=== PATIENT | female | born 1985 | race Caucasian/White ===

== ENCOUNTER 2018-11-10 16:19 | Emergency (ER) | payer OTHER, SELFPAY ==
[2018-11-10 16:47] VITALS: BP 126/87; PULSE 81; RESP 14; TEMP 36.7; O2SAT 98; BMI 21.1
[2018-11-10 17:23] LABS: Prothrombin Time 11.2 SECONDS (10.1-12.7)
[2018-11-10 17:25] LABS: PTT Partial Thromboplastin Tim 34 SECONDS (26.4-36.2)
[2018-11-10 17:26] LABS: Alanine Aminotransferase 20 IU/L (9-52); Albumin 5.1 g/dL (3.5-5.0); Albumin Globulin Ratio 1.5 (1.0-2.8); Alkaline Phosphatase 57 U/L (38-126); Aspartate Aminotransferase 27 IU/L (14-36); BUN Creatinine Ratio 18.6 (6-22); Bilirubin Total 0.7 mg/dL (0.2-1.3); Blood Urea Nitrogen 13 mg/dL (7-17); Calcium 9.7 mg/dL (8.4-10.2); Carbon Dioxide 25 mmol/L (22-32); Chloride 103 mmol/L (98-107); Estimated Glomerular Filt Rate > 60.0 mL/min (>60); Globulin 3.3 g/dL (1.7-4.1); Glucose 97 mg/dL (70-100); HEMOLYSIS 24 (0-50); Lipase 104 U/L (23-300); Sodium 140 mmol/L (137-145); Total Protein 8.4 g/dL (6.3-8.2)
--- NOTE | 2018-11-10 17:33 | ED.ABDPAIN ---
HPI - Abdominal Pain <BHAKTI Angel - Last Filed: 11/10/18 19:57> General Chief Complaint: Abdominal Pain Stated Complaint: states lower right abdominal pain since last night Time Seen by Provider: 11/10/18 16:53 Source: patient and family Mode of arrival: ambulatory Limitations: no limitations History of Present Illness HPI narrative: The patient is a 33-year-old female current smoker who presents with her for a chief complaint of right lower quadrant pain that started last night. She states she had generalized abdominal pain that focalized to her right lower quadrant. She denies any fevers nausea vomiting or diarrhea. She states that the pain in the right lower quadrant comes and goes. She states it was very bad approximately 1 hour prior to arrival, but states she does not have any pain on my exam. She denies any dysuria urgency or frequency. She denies any vaginal bleeding or vaginal discharge. She denies any concerned about sexually transmitted of infections. She denies any history of abdominal surgeries. Related Data Allergies Allergy/AdvReac Type Severity Reaction Status Date / Time No Known Drug Allergies Allergy Verified 11/10/18 16:46 Review of Systems <BHAKTI Angel - Last Filed: 11/10/18 19:57> Review of Systems GENERAL: Denies chills, fatigue, malaise, fever, sweats. HEENT: Denies sinus pain, ear pain, sore throat, difficulty swallowing, dizziness. RESPIRATORY: Denies dyspnea, cough, wheezing, hemoptysis, sputum. CARDIOVASCULAR: Denies chest pain, palpitations, orthopnea, edema, GASTROINTESTINAL: See HPI : Denies dysuria, frequency, incontinence, hematuria, urinary retention. MUSCULOSKELETAL: denies weakness, joint pain, or bony pain SKIN: Denies rash, skin lesions, or other NEUROLOGIC: Denies weakness, headache, numbness, change in speech, confusion, seizures, incoordination. PSYCHIATRIC: No concerning psychosocial issues. 12 point review of systems is negative except for those stated above PFSH <BHAKTI Angel - Last Filed: 11/10/18 19:57> Social History Smoking Status: Current every day smoker Social History Smoking Status: Current every day smoker Exam <BHAKTI Angel - Last Filed: 11/10/18 19:57> Narrative Exam Narrative: GENERAL: This is a well-nourished, well-developed patient, no acute distress HEAD: Atraumatic. Normocephalic. No temporal or scalp tenderness. EYES: Pupils equal round and reactive. Extraocular motions intact. No scleral icterus. No injection or drainage. ENT: Nose without bleeding, purulent drainage or septal hematoma. Throat without erythema, tonsillar hypertrophy or exudate. Uvula midline. Airway patent. NECK: Trachea midline. No JVD or lymphadenopathy. Supple, nontender, no meningeal signs. CARDIOVASCULAR: Regular rate and rhythm without murmurs, gallops, or rubs. RESPIRATORY: Clear to auscultation. Breath sounds equal bilaterally. No wheezes, rales, or rhonchi. GASTROINTESTINAL: Abdomen soft, non-tender, nondistended. No hepato-splenomegaly, or palpable masses. No guarding. Negative obturator sign. Active bowel sounds all 4 quadrants. No peritoneal signs. EXTREMITIES: No clubbing, cyanosis, or edema. No joint tenderness, effusion, or edema noted. BACK: Nontender without deformity or crepitance. No flank tenderness. NEURO: AOx3. SKIN: No rash or erythema. Initial Vital Signs Initial Vital Signs: Vital Signs Temperature 98.0 F 11/10/18 16:47 Pulse Rate 81 11/10/18 16:47 Respiratory Rate 14 11/10/18 16:47 Blood Pressure 126/87 11/10/18 16:47 Pulse Oximetry 98 11/10/18 16:47 <Elena Osborne DO - Last Filed: 11/18/18 20:34> Initial Vital Signs Initial Vital Signs: Vital Signs Temperature 98.0 F 11/10/18 16:47 Pulse Rate 81 11/10/18 16:47 Respiratory Rate 14 11/10/18 16:47 Blood Pressure 126/87 11/10/18 16:47 Pulse Oximetry 98 11/10/18 16:47 Course <BHAKTI Angel - Last Filed: 11/10/18 19:57> Orders Ordered: ED Orders 11/10/18 17:00 Test Urine Stat 11/10/18 17:04 Complete Blood Count AUTO DIFF Stat Comprehensive Metabolic Panel Stat Lipase Stat Partial Thromboplastin Time Stat Prothrombin Time INR Stat 11/10/18 17:52 US pelvic complete Stat Vital Signs - 8 hr 11/10/18 16:47 11/10/18 17:49 11/10/18 19:21 Temperature 98.0 F Pulse Rate 81 83 74 Respiratory Rate 14 15 16 Blood Pressure 126/87 Blood Pressure [Left Arm] 111/71 119/67 Pulse Oximetry 98 100 100 <Elena Osborne DO - Last Filed: 11/18/18 20:34> Orders Ordered: ED Orders 11/10/18 17:00 Test Urine Stat 11/10/18 17:04 Complete Blood Count AUTO DIFF Stat Comprehensive Metabolic Panel Stat Lipase Stat Partial Thromboplastin Time Stat Prothrombin Time INR Stat 11/10/18 17:52 US pelvic complete Stat Vital Signs - 8 hr 11/10/18 16:47 11/10/18 17:49 11/10/18 19:21 Temperature 98.0 F Pulse Rate 81 83 74 Respiratory Rate 14 15 16 Blood Pressure 126/87 Blood Pressure [Left Arm] 111/71 119/67 Pulse Oximetry 98 100 100 MDM - Abdominal Pain <LEEANNA Angel-BC - Last Filed: 11/10/18 19:57> Lab Data Result diagrams: 11/10/18 17:04 11/10/18 17:04 Lab Results 11/10/18 11/10/18 11/10/18 Range/Units 17:00 17:04 17:04 WBC 7.3 (4.5-11.0) X10^3/uL RBC 5.37 H (4.0-5.2) X10^6/uL Hgb 15.8 (12.0-16.0) g/dL Hct 46.6 H (36-46) % MCV 86.7 (80-100) fL MCH 29.5 (26-34) PG MCHC 34.0 (30-36) % RDW 12.7 (11.6-14.8) % Plt Count 240 (150-400) X10^3/uL Neut % (Auto) 51.6 (50-75) % Lymph % (Auto) 38.6 (25-40) % [place] % (Auto) 5.5 (3-14) % Eos % (Auto) 2.0 (2-4) % Baso % (Auto) 2.3 H (0-2) % Neut # (Auto) 3800 (2586-0287) /uL Lymph # (Auto) 2800 (4525-6190) /uL [place] # (Auto) 400 (0-900) /uL Eos # (Auto) 100 (0-450) /uL Baso # (Auto) 200 H (0-100) /uL PT 11.2 (10.1-12.7) SECONDS INR 1.0 (0.9-1.3) APTT 34 (26.4-36.2) SECONDS Sodium (137-145) mmol/L Potassium (3.4-5.1) mmol/L Chloride (98-107) mmol/L Carbon Dioxide (22-32) mmol/L BUN (7-17) mg/dL Creatinine (0.52-1.04) mg/dL Estimated GFR (>60) mL/min BUN/Creatinine Ratio (6-22) Glucose (70-100) mg/dL Calcium (8.4-10.2) mg/dL Total Bilirubin (0.2-1.3) mg/dL AST (14-36) IU/L ALT (9-52) IU/L Alkaline Phosphatase (38-126) U/L Total Protein (6.3-8.2) g/dL Albumin (3.5-5.0) g/dL Globulin (1.7-4.1) g/dL Albumin/Globulin Ratio (1.0-2.8) Lipase (23-300) U/L Urine Test Negative (Negative) 11/10/18 Range/Units 17:04 WBC (4.5-11.0) X10^3/uL RBC (4.0-5.2) X10^6/uL Hgb (12.0-16.0) g/dL Hct (36-46) % MCV (80-100) fL MCH (26-34) PG MCHC (30-36) % RDW (11.6-14.8) % Plt Count (150-400) X10^3/uL Neut % (Auto) (50-75) % Lymph % (Auto) (25-40) % [place] % (Auto) (3-14) % Eos % (Auto) (2-4) % Baso % (Auto) (0-2) % Neut # (Auto) (9734-8296) /uL Lymph # (Auto) (9475-4846) /uL [place] # (Auto) (0-900) /uL Eos # (Auto) (0-450) /uL Baso # (Auto) (0-100) /uL PT (10.1-12.7) SECONDS INR (0.9-1.3) APTT (26.4-36.2) SECONDS Sodium 140 (137-145) mmol/L Potassium 4.0 (3.4-5.1) mmol/L Chloride 103 (98-107) mmol/L Carbon Dioxide 25 (22-32) mmol/L BUN 13 (7-17) mg/dL Creatinine 0.70 (0.52-1.04) mg/dL Estimated GFR > 60.0 (>60) mL/min BUN/Creatinine Ratio 18.6 (6-22) Glucose 97 (70-100) mg/dL Calcium 9.7 (8.4-10.2) mg/dL Total Bilirubin 0.7 (0.2-1.3) mg/dL AST 27 (14-36) IU/L ALT 20 (9-52) IU/L Alkaline Phosphatase 57 (38-126) U/L Total Protein 8.4 H (6.3-8.2) g/dL Albumin 5.1 H (3.5-5.0) g/dL Globulin 3.3 (1.7-4.1) g/dL Albumin/Globulin Ratio 1.5 (1.0-2.8) Lipase 104 (23-300) U/L Urine Test (Negative) Point of care testing: Urine Dip Bedside Urine Glucose Negative Bedside Urine Bilirubin - Negative Bedside Urine Ketone - Negative Urine Specific [place] 1.010 Bedside Urine Occult Blood - Negative Bedside Urine pH 7.5 Bedside Urine Protein - Negative Bedside Urine Urobilinogen - Negative Bedside Urine Nitrite - Negative Bedside Urine Leukocytes - Negative Esterase Imaging Data Pelvic ultrasound: Radiologist's impression: [address] [address] Ultrasound Report Signed Patient: Kait RomeroGenevieve#: [id number] : 1985Acct:[id number] Age/Sex: te of Service: 11/10/18 Loc: ED Accession Number: [id number] Procedure: US pelvic complete Ordering Provider: Sheila Acevedo PROCEDURE: US PELVIC COMPLETE INDICATIONS: PAIN TECHNIQUE: Real-time scanning was performed of the pelvic organs, with image documentation. Additional endovaginal scanning was necessary due to incomplete visualization of the adnexal and endometrial structures by transabdominal scanning. COMPARISON: None. FINDINGS: Transabdominal scanning: Limited scanning through the kidneys shows no hydronephrosis. No pathologic free abdominal or pelvic fluid. Endovaginal scanning: Uterus: Uterus is normal in size at 9.4 x 5.4 x 6.8 cm. The endometrium measures 15.7 mm in combined thickness. There is a midline anterior intramural 3.8 x 2.6 x 3.1 cm fibroid. Ovaries: The right ovary measures 2.9 x 1.4 x 1.5 cm and the left ovary measures 4.4 x 3.1 x 2.9 cm. There is a complex, avascular cyst within the left ovary which measures 1.5 x 2.7 x 1.9 cm. IMPRESSION: 1. Complex, avascular left ovarian cyst suggesting hemorrhagic cyst or endometrioma. 6-12 week followup recommended to ensure resolution. 2. Otherwise unremarkable pelvic ultrasound. Dictated by: Yoanna Infante M.D. on 11/10/2018 at 19:29 Approved by: Yoanna Infante M.D. on 11/10/2018 at 19:31 MDM Narrative Medical decision making narrative: The patient is a 33-year-old female presents with chief complaint of right lower quadrant pain. She states she is pain-free on arrival. Her white blood cell count not elevated here, she is grossly normal lab work does not have an acute abdomen on exam. She has a negative test and normal urinalysis. She is hemodynamically stable, afebrile nontoxic-appearing upon evaluation. She states she has smoked marijuana prior to arrival. Pelvic ultrasound reveals a complex left ovarian cyst, I discussed at length with the patient that she needs follow up regarding this. I did give her contact information for the [facility] health human resources manager discussed at length return precautions the emergency department, including inability keep down fluids, fever combined with abdominal pain. The patient is pain free on discharge. Patient has no questions or concerns upon discharge. <Elena Osborne, DO - Last Filed: 11/18/18 20:34> Lab Data Lab Results 11/10/18 11/10/18 11/10/18 Range/Units 17:00 17:04 17:04 WBC 7.3 (4.5-11.0) X10^3/uL RBC 5.37 H (4.0-5.2) X10^6/uL Hgb 15.8 (12.0-16.0) g/dL Hct 46.6 H (36-46) % MCV 86.7 (80-100) fL MCH 29.5 (26-34) PG MCHC 34.0 (30-36) % RDW 12.7 (11.6-14.8) % Plt Count 240 (150-400) X10^3/uL Neut % (Auto) 51.6 (50-75) % Lymph % (Auto) 38.6 (25-40) % [place] % (Auto) 5.5 (3-14) % Eos % (Auto) 2.0 (2-4) % Baso % (Auto) 2.3 H (0-2) % Neut # (Auto) 3800 (6569-4014) /uL Lymph # (Auto) 2800 (7685-4215) /uL [place] # (Auto) 400 (0-900) /uL Eos # (Auto) 100 (0-450) /uL Baso # (Auto) 200 H (0-100) /uL PT 11.2 (10.1-12.7) SECONDS INR 1.0 (0.9-1.3) APTT 34 (26.4-36.2) SECONDS Sodium (137-145) mmol/L Potassium (3.4-5.1) mmol/L Chloride (98-107) mmol/L Carbon Dioxide (22-32) mmol/L BUN (7-17) mg/dL Creatinine (0.52-1.04) mg/dL Estimated GFR (>60) mL/min BUN/Creatinine Ratio (6-22) Glucose (70-100) mg/dL Calcium (8.4-10.2) mg/dL Total Bilirubin (0.2-1.3) mg/dL AST (14-36) IU/L ALT (9-52) IU/L Alkaline Phosphatase (38-126) U/L Total Protein (6.3-8.2) g/dL Albumin (3.5-5.0) g/dL Globulin (1.7-4.1) g/dL Albumin/Globulin Ratio (1.0-2.8) Lipase (23-300) U/L Urine Test Negative (Negative) 11/10/18 Range/Units 17:04 WBC (4.5-11.0) X10^3/uL RBC (4.0-5.2) X10^6/uL Hgb (12.0-16.0) g/dL Hct (36-46) % MCV (80-100) fL MCH (26-34) PG MCHC (30-36) % RDW (11.6-14.8) % Plt Count (150-400) X10^3/uL Neut % (Auto) (50-75) % Lymph % (Auto) (25-40) % [place] % (Auto) (3-14) % Eos % (Auto) (2-4) % Baso % (Auto) (0-2) % Neut # (Auto) (4442-3676) /uL Lymph # (Auto) (1989-0925) /uL [place] # (Auto) (0-900) /uL Eos # (Auto) (0-450) /uL Baso # (Auto) (0-100) /uL PT (10.1-12.7) SECONDS INR (0.9-1.3) APTT (26.4-36.2) SECONDS Sodium 140 (137-145) mmol/L Potassium 4.0 (3.4-5.1) mmol/L Chloride 103 (98-107) mmol/L Carbon Dioxide 25 (22-32) mmol/L BUN 13 (7-17) mg/dL Creatinine 0.70 (0.52-1.04) mg/dL Estimated GFR > 60.0 (>60) mL/min BUN/Creatinine Ratio 18.6 (6-22) Glucose 97 (70-100) mg/dL Calcium 9.7 (8.4-10.2) mg/dL Total Bilirubin 0.7 (0.2-1.3) mg/dL AST 27 (14-36) IU/L ALT 20 (9-52) IU/L Alkaline Phosphatase 57 (38-126) U/L Total Protein 8.4 H (6.3-8.2) g/dL Albumin 5.1 H (3.5-5.0) g/dL Globulin 3.3 (1.7-4.1) g/dL Albumin/Globulin Ratio 1.5 (1.0-2.8) Lipase 104 (23-300) U/L Urine Test (Negative) Point of care testing: Urine Dip Bedside Urine Glucose Negative Bedside Urine Bilirubin - Negative Bedside Urine Ketone - Negative Urine Specific [place] 1.010 Bedside Urine Occult Blood - Negative Bedside Urine pH 7.5 Bedside Urine Protein - Negative Bedside Urine Urobilinogen - Negative Bedside Urine Nitrite - Negative Bedside Urine Leukocytes - Negative Esterase Discharge Plan Departure Patient Disposition: Home Clinical Impression: Ovarian cyst Qualifiers: Laterality: left Qualified Code(s): N83.202 - Unspecified ovarian cyst, left side Abdominal pain Qualifiers: Abdominal location: right lower quadrant Qualified Code(s): R10.31 - Right lower quadrant pain Discharge Date/Time: 11/10/18 19:55 Interventions: ED Discharge Assessment Last Done: 11/10/18 19:55 Instructions: DI for Ovarian Cyst, DI for Abdominal Pain-Adult Activity Restrictions/Additional Instructions: Today your ultrasound found a left ovarian cyst that may be a complex cyst or something like an endometrioma. Your lab work was normal. Urinalysis was normal. That he follow up and get repeat imaging in 6-12 weeks. I have given contact information for that [facility] health human resources manager, who can help you identify follow-up PCP. Please come back to the ER for any acute concerns such as and we keep down fluids, fever with abdominal pain etc. Referrals: [facility] [Outside] Andres Myers MD [Primary Care Provider] - <Elena Osboren DO - Last Filed: 11/18/18 20:34> Cosign ED Attending Cosangelaature Attestation: I was immediately available in the department for consultation. Documentation has been reviewed. I agree with assessment and plan.
[2018-11-10 17:35] LABS: Add Manual Diff / Slide Review NO; Basophils Absolute Auto 200 /uL (0-100); Basophils Percent Auto 2.3 % (0-2); Eosinophils Absolute Auto 100 /uL (0-450); Hematocrit 46.6 % (36-46); Hemoglobin 15.8 g/dL (12.0-16.0); Lymphocytes Absolute Auto 2800 /uL (1100-4500); Lymphocytes Percent Auto 38.6 % (25-40); Mean Corpuscular Hemoglobin 29.5 PG (26-34); Mean Corpuscular Volume 86.7 fL (80-100); Monocytes Absolute Auto 400 /uL (0-900); Monocytes Percent Auto 5.5 % (3-14); Neutrophils Absolute Auto 3800 /uL (1500-7000); Neutrophils Percent Auto 51.6 % (50-75); Platelet Count 240 X10^3/uL (150-400); Red Blood Cell Count 5.37 X10^6/uL (4.0-5.2); Red Cell Distribution Width 12.7 % (11.6-14.8); White Blood Cell Count 7.3 X10^3/uL (4.5-11.0)
--- NOTE | 2018-11-10 17:36 | ED_ITS ---
HPI - Abdominal Pain <BHAKTI Angel - Last Filed: 11/10/18 19:57> General Chief Complaint: Abdominal Pain Stated Complaint: states lower right abdominal pain since last night Time Seen by Provider: 11/10/18 16:53 Source: patient and family Mode of arrival: ambulatory Limitations: no limitations History of Present Illness HPI narrative: The patient is a 33-year-old female current smoker who presents with her for a chief complaint of right lower quadrant pain that started last night. She states she had generalized abdominal pain that focalized to her right lower quadrant. She denies any fevers nausea vomiting or diarrhea. She states that the pain in the right lower quadrant comes and goes. She states it was very bad approximately 1 hour prior to arrival, but states she does not have any pain on my exam. She denies any dysuria urgency or frequency. She denies a ny vaginal bleeding or vaginal discharge. She denies any concerned about sexually transmitted of infections. She denies any history of abdominal surgeries. Related Data Allergies Allergy/AdvReac Type Severity Reaction Status Date / Time No Known Drug Allergies Allergy Verified 11/10/18 16:46 Review of Systems <BHAKTI Angel - Last Filed: 11/10/18 19:57> Review of Systems GENERAL: Denies chills, fatigue, malaise, fever, sweats. HEENT: Denies sinus pain, ear pain, sore throat, difficulty swallowing, dizziness. RESPIRATORY: Denies dyspnea, cough, wheezing, hemoptysis, sputum. CARDIOVASCULAR: Denies chest pain, palpitations, orthopnea, edema, GASTROINTESTINAL: See HPI : Denies dysuria, frequency, incontinence, hematuria, urinary retention. MUSCULOSKELETAL: denies weakness, joint pain, or bony pain SKIN: Denies rash, skin lesions, or other NEUROLOGIC: Denies weakness, headache, numbness, change in speech, confusion, seizures, incoordination. PSYCHIATRIC: No concerning psychosocial issues. 12 point review of systems is negative except for those stated above PFSH <BHAKTI Angel - Last Filed: 11/10/18 19:57> Social History Smoking Status: Current every day smoker Social History Smoking Status: Current every day smoker Exam <BHAKTI Angel - Last Filed: 11/10/18 19:57> Narrative Exam Narrative: GENERAL: This is a well-nourished, well-developed patient, no acute distress HEAD: Atraumatic. Normocephalic. No temporal or scalp tenderness. EYES: Pupils equal round and reactive. Extraocular motions intact. No scleral icterus. No injection or drainage. ENT: Nose without bleeding, purulent drainage or septal hematoma. Throat without erythema, tonsillar hypertrophy or exudate. Uvula midline. Airway patent. NECK: Trachea midline. No JVD or lymphadenopathy. Supple, nontender, no meningeal signs. CARDIOVASCULAR: Regular rate and rhythm without murmurs, gallops, or rubs. RESPIRATORY: Clear to auscultation. Breath sounds equal bilaterally. No wheezes, rales, or rhonchi. GASTROINTESTINAL: Abdomen soft, non-tender, nondistended. No hepato- splenomegaly, or palpable masses. No guarding. Negative obturator sign. Active bowel sounds all 4 quadrants. No peritoneal signs. EXTREMITIES: No clubbing, cyanosis, or edema. No joint tenderness, effusion, or edema noted. BACK: Nontender without deformity or crepitance. No flank tenderness. NEURO: AOx3. SKIN: No rash or erythema. Initial Vital Signs Initial Vital Signs: Vital Signs Temperature 98.0 F 11/10/18 16:47 Pulse Rate 81 11/10/18 16:47 Respiratory Rate 14 11/10/18 16:47 Blood Pressure 126/87 11/10/18 16:47 Pulse Oximetry 98 11/10/18 16:47 <Elena Osborne DO - Last Filed: 11/18/18 20:34> Initial Vital Signs Initial Vital Signs: Vital Signs Temperature 98.0 F 11/10/18 16:47 Pulse Rate 81 11/10/18 16:47 Respiratory Rate 14 11/10/18 16:47 Blood Pressure 126/87 11/10/18 16:47 Pulse Oximetry 98 11/10/18 16:47 Course <BHAKTI Angel - Last Filed: 11/10/18 19:57> Orders Ordered: ED Orders 11/10/18 17:00 Test Urine Stat 11/10/18 17:04 Complete Blood Count AUTO DIFF Stat Comprehensive Metabolic Panel Stat Lipase Stat Partial Thromboplastin Time Stat Prothrombin Time INR Stat 11/10/18 17:52 US pelvic complete Stat Vital Signs - 8 hr 11/10/18 16:47 11/10/18 17:49 11/10/18 19:21 Temperature 98.0 F Pulse Rate 81 83 74 Respiratory Rate 14 15 16 Blood Pressure 126/87 Blood Pressure [Left Arm] 111/71 119/67 Pulse Oximetry 98 100 100 <Elena Osborne DO - Last Filed: 11/18/18 20:34> Orders Ordered: ED Orders 11/10/18 17:00 Test Urine Stat 11/10/18 17:04 Complete Blood Count AUTO DIFF Stat Comprehensive Metabolic Panel Stat Lipase Stat Partial Thromboplastin Time Stat Prothrombin Time INR Stat 11/10/18 17:52 US pelvic complete Stat Vital Signs - 8 hr 11/10/18 16:47 11/10/18 17:49 11/10/18 19:21 Temperature 98.0 F Pulse Rate 81 83 74 Respiratory Rate 14 15 16 Blood Pressure 126/87 Blood Pressure [Left Arm] 111/71 119/67 Pulse Oximetry 98 100 100 MDM - Abdominal Pain <LEEANNA Angel-BC - Last Filed: 11/10/18 19:57> Lab Data Result diagrams: 11/10/18 17:04 11/10/18 17:04 Lab Results 11/10/18 11/10/18 11/10/18 Range/Units 17:00 17:04 17:04 WBC 7.3 (4.5-11.0) X10^3/uL RBC 5.37 H (4.0-5.2) X10^6/uL Hgb 15.8 (12.0-16.0) g/dL Hct 46.6 H (36-46) % MCV 86.7 (80-100) fL MCH 29.5 (26-34) PG MCHC 34.0 (30-36) % RDW 12.7 (11.6-14.8) % Plt Count 240 (150-400) X10^3/uL Neut % (Auto) 51.6 (50-75) % Lymph % (Auto) 38.6 (25-40) % [place] % (Auto) 5.5 (3-14) % Eos % (Auto) 2.0 (2-4) % Baso % (Auto) 2.3 H (0-2) % Neut # (Auto) 3800 (8558-3495) /uL Lymph # (Auto) 2800 (8725-7319) /uL [place] # (Auto) 400 (0-900) /uL Eos # (Auto) 100 (0-450) /uL Baso # (Auto) 200 H (0-100) /uL PT 11.2 (10.1-12.7) SECONDS INR 1.0 (0.9-1.3) APTT 34 (26.4-36.2) SECONDS Sodium (137-145) mmol/L Potassium (3.4-5.1) mmol/L Chloride (98-107) mmol/L Carbon Dioxide (22-32) mmol/L BUN (7-17) mg/dL Creatinine (0.52-1.04) mg/dL Estimated GFR (>60) mL/min BUN/Creatinine Ratio (6-22) Glucose (70-100) mg/dL Calcium (8.4-10.2) mg/dL Total Bilirubin (0.2-1.3) mg/dL AST (14-36) IU/L ALT (9-52) IU/L Alkaline Phosphatase (38-126) U/L Total Protein (6.3-8.2) g/dL Albumin (3.5-5.0) g/dL Globulin (1.7-4.1) g/dL Albumin/Globulin Ratio (1.0-2.8) Lipase (23-300) U/L Urine Test Negative (Negative) 11/10/18 Range/Units 17:04 WBC (4.5-11.0) X10^3/uL RBC (4.0-5.2) X10^6/uL Hgb (12.0-16.0) g/dL Hct (36-46) % MCV (80-100) fL MCH (26-34) PG MCHC (30-36) % RDW (11.6-14.8) % Plt Count (150-400) X10^3/uL Neut % (Auto) (50-75) % Lymph % (Auto) (25-40) % [place] % (Auto) (3-14) % Eos % (Auto) (2-4) % Baso % (Auto) (0-2) % Neut # (Auto) (0113-6015) /uL Lymph # (Auto) (1971-5011) /uL [place] # (Auto) (0-900) /uL Eos # (Auto) (0-450) /uL Baso # (Auto) (0-100) /uL PT (10.1-12.7) SECONDS INR (0.9-1.3) APTT (26.4-36.2) SECONDS Sodium 140 (137-145) mmol/L Potassium 4.0 (3.4-5.1) mmol/L Chloride 103 (98-107) mmol/L Carbon Dioxide 25 (22-32) mmol/L BUN 13 (7-17) mg/dL Creatinine 0.70 (0.52-1.04) mg/dL Estimated GFR > 60.0 (>60) mL/min BUN/Creatinine Ratio 18.6 (6-22) Glucose 97 (70-100) mg/dL Calcium 9.7 (8.4-10.2) mg/dL Total Bilirubin 0.7 (0.2-1.3) mg/dL AST 27 (14-36) IU/L ALT 20 (9-52) IU/L Alkaline Phosphatase 57 (38-126) U/L Total Protein 8.4 H (6.3-8.2) g/dL Albumin 5.1 H (3.5-5.0) g/dL Globulin 3.3 (1.7-4.1) g/dL Albumin/Globulin Ratio 1.5 (1.0-2.8) Lipase 104 (23-300) U/L Urine Test (Negative) Point of care testing: Urine Dip Bedside Urine Glucose Negative Bedside Urine Bilirubin - Negative Bedside Urine Ketone - Negative Urine Specific [place] 1.010 Bedside Urine Occult Blood - Negative Bedside Urine pH 7.5 Bedside Urine Protein - Negative Bedside Urine Urobilinogen - Negative Bedside Urine Nitrite - Negative Bedside Urine Leukocytes - Negative Esterase Imaging Data Pelvic ultrasound: Radiologist's impression: [address] [address] Ultrasound Report Signed Patient: Kait RomeroGenevieve#: [id number] : 1985Acct:[id number] Age/Sex: 33 / FDate of Service: 11/10/18 Loc: ED Accession Number: [id number] Procedure: US pelvic complete Ordering Provider: Sheila Acevedo PROCEDURE: US PELVIC COMPLETE INDICATIONS: PAIN TECHNIQUE: Real-time scanning was performed of the pelvic organs, with image documentation. Additional endovaginal scanning was necessary due to incomplete visualization of the adnexal and endometrial structures by transabdominal scanning. COMPARISON: None. FINDINGS: Transabdominal scanning: Limited scanning through the kidneys shows no hydronephrosis. No pathologic free abdominal or pelvic fluid. Endovaginal scanning: Uterus: Uterus is normal in size at 9.4 x 5.4 x 6.8 cm. The endometrium measures 15.7 mm in combined thickness. There is a midline anterior intramural 3.8 x 2.6 x 3.1 cm fibroid. Ovaries: The right ovary measures 2.9 x 1.4 x 1.5 cm and the left ovary measures 4.4 x 3.1 x 2.9 cm. There is a complex, avascular cyst within the left ovary which me asures 1.5 x 2.7 x 1.9 cm. IMPRESSION: 1. Complex, avascular left ovarian cyst suggesting hemorrhagic cyst or endometrioma. 6-12 week followup recommended to ensure resolution. 2. Otherwise unremarkable pelvic ultrasound. Dictated by: Yoanna Infante M.D. on 11/10/2018 at 19:29 Approved by: Yoanna Infante M.D. on 11/10/2018 at 19:31 MDM Narrative Medical decision making narrative: The patient is a 33-year-old female presents with chief complaint of right lower quadrant pain. She states she is pain-free on arrival. Her white blood cell count not elevated here, she is grossly normal lab work does not have an acute abdomen on exam. She has a negative test and normal urinalysis. She is hemodynamically stable, afebrile nontoxic- appearing upon evaluation. She states she has smoked marijuana prior to arrival. Pelvic ultrasound reveals a complex left ovarian cyst, I discussed at length with the patient that she needs follow up regarding this. I did give her contact information for the [facility] health human resources operations coordinator discussed at length return precautions the emergency department, including inability keep down fluids, fever combined with abdominal pain. The patient is pain free on discharge. Patient has no questions or concerns upon discharge. <Elena Osborne, DO - Last Filed: 11/18/18 20:34> Lab Data Lab Results 11/10/18 11/10/18 11/10/18 Range/Units 17:00 17:04 17:04 WBC 7.3 (4.5-11.0) X10^3/uL RBC 5.37 H (4.0-5.2) X10^6/uL Hgb 15.8 (12.0-16.0) g/dL Hct 46.6 H (36-46) % MCV 86.7 (80-100) fL MCH 29.5 (26-34) PG MCHC 34.0 (30-36) % RDW 12.7 (11.6-14.8) % Plt Count 240 (150-400) X10^3/uL Neut % (Auto) 51.6 (50-75) % Lymph % (Auto) 38.6 (25-40) % [place] % (Auto) 5.5 (3-14) % Eos % (Auto) 2.0 (2-4) % Baso % (Auto) 2.3 H (0-2) % Neut # (Auto) 3800 (0756-6376) /uL Lymph # (Auto) 2800 (1783-9067) /uL [place] # (Auto) 400 (0-900) /uL Eos # (Auto) 100 (0-450) /uL Baso # (Auto) 200 H (0-100) /uL PT 11.2 (10.1-12.7) SECONDS INR 1.0 (0.9-1.3) APTT 34 (26.4-36.2) SECONDS Sodium (137-145) mmol/L Potassium (3.4-5.1) mmol/L Chloride (98-107) mmol/L Carbon Dioxide (22-32) mmol/L BUN (7-17) mg/dL Creatinine (0.52-1.04) mg/dL Estimated GFR (>60) mL/min BUN/Creatinine Ratio (6-22) Glucose (70-100) mg/dL Calcium (8.4-10.2) mg/dL Total Bilirubin (0.2-1.3) mg/dL AST (14-36) IU/L ALT (9-52) IU/L Alkaline Phosphatase (38-126) U/L Total Protein (6.3-8.2) g/dL Albumin (3.5-5.0) g/dL Globulin (1.7-4.1) g/dL Albumin/Globulin Ratio (1.0-2.8) Lipase (23-300) U/L Urine Test Negative (Negative) 11/10/18 Range/Units 17:04 WBC (4.5-11.0) X10^3/uL RBC (4.0-5.2) X10^6/uL Hgb (12.0-16.0) g/dL Hct (36-46) % MCV (80-100) fL MCH (26-34) PG MCHC (30-36) % RDW (11.6-14.8) % Plt Count (150-400) X10^3/uL Neut % (Auto) (50-75) % Lymph % (Auto) (25-40) % [place] % (Auto) (3-14) % Eos % (Auto) (2-4) % Baso % (Auto) (0-2) % Neut # (Auto) (0161-3922) /uL Lymph # (Auto) (9795-1171) /uL [place] # (Auto) (0-900) /uL Eos # (Auto) (0-450) /uL Baso # (Auto) (0-100) /uL PT (10.1-12.7) SECONDS INR (0.9-1.3) APTT (26.4-36.2) SECONDS Sodium 140 (137-145) mmol/L Potassium 4.0 (3.4-5.1) mmol/L Chloride 103 (98-107) mmol/L Carbon Dioxide 25 (22-32) mmol/L BUN 13 (7-17) mg/dL Creatinine 0.70 (0.52-1.04) mg/dL Estimated GFR > 60.0 (>60) mL/min BUN/Creatinine Ratio 18.6 (6-22) Glucose 97 (70-100) mg/dL Calcium 9.7 (8.4-10.2) mg/dL Total Bilirubin 0.7 (0.2-1.3) mg/dL AST 27 (14-36) IU/L ALT 20 (9-52) IU/L Alkaline Phosphatase 57 (38-126) U/L Total Protein 8.4 H (6.3-8.2) g/dL Albumin 5.1 H (3.5-5.0) g/dL Globulin 3.3 (1.7-4.1) g/dL Albumin/Globulin Ratio 1.5 (1.0-2.8) Lipase 104 (23-300) U/L Urine Test (Negative) Point of care testing: Urine Dip Bedside Urine Glucose Negative Bedside Urine Bilirubin - Negative Bedside Urine Ketone - Negative Urine Specific [place] 1.010 Bedside Urine Occult Blood - Negative Bedside Urine pH 7.5 Bedside Urine Protein - Negative Bedside Urine Urobilinogen - Negative Bedside Urine Nitrite - Negative Bedside Urine Leukocytes - Negative Esterase Discharge Plan Departure Patient Disposition: Home Clinical Impression: Ovarian cyst Qualifiers: Laterality: left Qualified Code(s): N83.202 - Unspecified ovarian cyst, left side Abdominal pain Qualifiers: Abdominal location: right lower quadrant Qualified Code(s): R10.31 - Right lower quadrant pain Discharge Date/Time: 11/10/18 19:55 Interventions: ED Discharge Assessment Last Done: 11/10/18 19:55 Instructions: DI for Ovarian Cyst, DI for Abdominal Pain-Adult Activity Restrictions/Additional Instructions: Today your ultrasound found a left ovarian cyst that may be a complex cyst or something like an endometrioma. Your lab work was normal. Urinalysis was normal. That he follow up and get repeat imaging in 6-12 weeks. I have given contact information for that [facility] health human resources operations coordinator, who can help you identify follow-up PCP. Please come back to the ER for any acute concerns such as and we keep down fluids, fever with abdominal pain etc. Referrals: [facility] [Outside] Andres Myers MD [Primary Care Provider] - <Elena Osborne DO - Last Filed: 11/18/18 20:34> Cosign ED Attending Marshaature Attestation: I was immediately available in the department for consultation. Documentation has been reviewed. I agree with assessment and plan.
[2018-11-10 17:38] LABS: Pregnancy Test Urine Negative (Negative)
[2018-11-10 17:49] VITALS: BP 111/71; PULSE 83; RESP 15; O2SAT 100
--- NOTE | 2018-11-10 17:52 | DI.US.S_ITS ---
PROCEDURE: US PELVIC COMPLETE INDICATIONS: PAIN TECHNIQUE: Real-time scanning was performed of the pelvic organs, with image documentation. Additional endovaginal scanning was necessary due to incomplete visualization of the adnexal and endometrial structures by transabdominal scanning. COMPARISON: None. FINDINGS: Transabdominal scanning: Limited scanning through the kidneys shows no hydronephrosis. No pathologic free abdominal or pelvic fluid. Endovaginal scanning: Uterus: Uterus is normal in size at 9.4 x 5.4 x 6.8 cm. The endometrium measures 15.7 mm in combined thickness. There is a midline anterior intramural 3.8 x 2.6 x 3.1 cm fibroid. Ovaries: The right ovary measures 2.9 x 1.4 x 1.5 cm and the left ovary measures 4.4 x 3.1 x 2.9 cm. There is a complex, avascular cyst within the left ovary which measures 1.5 x 2.7 x 1.9 cm. IMPRESSION: 1. Complex, avascular left ovarian cyst suggesting hemorrhagic cyst or endometrioma. 6-12 week followup recommended to ensure resolution. 2. Otherwise unremarkable pelvic ultrasound. Dictated by: Yoanna Infante M.D. on 11/10/2018 at 19:29 Approved by: Yoanna Infante M.D. on 11/10/2018 at 19:31
[2018-11-10 19:21] VITALS: BP 119/67; PULSE 74; RESP 16; O2SAT 100
== END 2018-11-10 19:55 | disposition home or self-care (01) ==
PROVIDERS: Emergency Medicine; Emergency Provider Nurse Practitioner Family; PCP Family Medicine
DX: N83.202 Unspecified ovarian cyst, left side (principal); R10.31 Right lower quadrant pain
CPT/HCPCS: 36591; 76830; 76856; 80053; 81003; 81025; 83690; 85025; 85610; 85730; 99283; 99284

== ENCOUNTER → 2019-01-04 13:55 | Outpatient (CLI) | payer OTHER, SELFPAY ==
--- NOTE | 2019-01-04 | DI.US.S_ITS ---
PROCEDURE: US THYROID INDICATIONS: THYROMEGALY, ROUTINE SCREENING TECHNIQUE: Real-time scanning was performed of the thyroid gland, with image documentation. COMPARISON: None. FINDINGS: Right: Thyroid lobe measures 5.3 x 1.2 x 1.6 cm, and is homogeneous in echotexture. Left: Thyroid lobe measures 5.6 x 1.2 x 1.7 cm, and is homogenous in echotexture. Isthmus: 3.0 mm thick. Nodule number: 1 Location: Right mid Size: 0.7 x 0.3 x 0.5 cm Composition: Predominant solid Echogenicity: Hypoechoic Shape: wider than tall. Margins: Smooth Echogenic foci: None Total points: 4 ACR TI-RADS category: Moderately suspicious Nodule number: 2 Location: Left superior Size: 1.1 x 0.7 x 0.9 cm. Composition: Predominantly solid Echogenicity: Hypoechoic Shape: wider than tall. Margins: Smooth Echogenic foci: Internal punctate echogenic foci Total points: 7 ACR TI-RADS category: Highly suspicious Nodule number: 3 Location: Left inferior Size: 2.1 x 1.1 x 1.4 cm. Composition: Predominantly solid Echogenicity: Hypoechoic Shape: wider than tall. Margins: Smooth Echogenic foci: Internal punctate echogenic foci Total points: 7 ACR TI-RADS category: Highly suspicious IMPRESSION: Bilateral thyroid nodules. Recommend sonographically directed fine needle aspiration involving the left # 2 and # 3 nodules. ACR TI-RADS definitions and recommendations: TI-RADS 1 (benign): 0 points. FNA not needed. TI-RADS 2 (not suspicious): 2 points. FNA not needed. TI-RADS 3 (mildly suspicious): 3 points. * FNA if 2.5 cm or larger, follow up if 1.5 cm or larger (at 1, 3, and 5 years). TI-RADS 4 (moderately suspicious): 4-6 points. * FNA if 1.5 cm or larger, follow up if 1 cm or larger (at 1, 2, 3, and 5 years). TI-RADS 5 (highly suspicious): 7 points or more. * FNA if 1 cm or larger, follow up if 0.5 cm or larger (every year for 5 years). Dictated by: Toby ARAUJO Interpreted: Yamile Cary MD on 01/04/2019 at 16:09 Approved by: Yamile Cary M.D. on 01/04/2019 at 16:27
--- NOTE | 2019-01-04 13:58 | DI.US.S_ITS ---
PROCEDURE: US PELVIC COMPLETE INDICATIONS: OVARIAN CYST TECHNIQUE: Real-time scanning was performed of the pelvic organs, with image documentation. Additional endovaginal scanning was necessary due to incomplete visualization of the adnexal and endometrial structures by transabdominal scanning. COMPARISON: [facility], , US PELVIC COMPLETE, 11/10/2018, 18:16. FINDINGS: Transabdominal scanning: Limited scanning through the kidneys shows no hydronephrosis. No pathologic free abdominal or pelvic fluid. Endovaginal scanning: Uterus: Uterus is normal in size at 10.3 x 5.4 x 6.1 cm. heterogeneous myometrial echotexture is seen. 2.7 x 2.4 x 2.8 cm right anterior subserosal fibroid is seen. The endometrium measures 12.9 mm in combined thickness. No gross endometrial mass or fluid is seen. Ovaries: Right ovary measures 3.4 x 1.7 x 1.7 cm in size and is within normal limits. Left ovary measures 4.4 x 3.3 x 2.6 cm in size. Complex appearing cyst is noted in left ovary measures 3.3 x 2.4 x 2.7 cm in size compared to 2.7 x 1.5 x 1.9 cm in size on previous study. No internal vascularity is seen. No solid-appearing lesion is noted. There is mild prominence of the uterine vessels bilaterally. IMPRESSION: 1. Interval slight increase in size of patient's known left ovarian complex cyst. No gross solid-appearing or effusion. Normal-appearing right ovary. 2. Stable right anterior uterine fibroid. No gross endometrial mass or fluid. 3. Mild prominence of bilateral uterine vessels, with which can be seen the case of pelvic congestion syndrome. No pelvic free fluid. Dictated by: [employer] M.D. on 01/04/2019 at 16:10 Approved by: [employer] M.D. on 01/04/2019 at 16:12
== END ==
PROVIDERS: PCP Family Medicine; Visit Provider Family Medicine
DX: N83.292 Other ovarian cyst, left side (principal); D25.2 Subserosal leiomyoma of uterus; E04.2 Nontoxic multinodular goiter
CPT/HCPCS: 76536; 76830; 76856